=== PATIENT | female | born 1995 | race Caucasian/White ===

== ENCOUNTER 2021-02-01 12:52 | Emergency (ER) | payer OTHER, SELFPAY ==
[2021-02-01 12:54] VITALS: BP 140/84; PULSE 65; RESP 18; TEMP 37.2; O2SAT 98; BMI 22.6
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
[2021-02-01 14:26] VITALS: BP 112/89; PULSE 70; RESP 16; TEMP 37.2; O2SAT 97
== END 2021-02-01 14:30 | disposition home or self-care (01) ==
PROVIDERS: Emergency Provider Emergency Medicine
DX: S63.502A Unspecified sprain of left wrist, initial encounter (principal); V43.52XA Car driver injured in collision with other type car in traffic accident, initial encounter; Y92.488 Other paved roadways as the place of occurrence of the external cause
CPT/HCPCS: 73090; 99282

== ENCOUNTER → 2021-05-16 15:36 | Outpatient (CLI) | payer OTHER, SELFPAY ==
[2021-05-16 15:53] LABS: Influenza A, PCR Not Detected (NotDetected); Influenza B, PCR Not Detected (NotDetected)
[2021-05-16 16:15] LABS: Coronavirus 19, PCR Detected (NotDetected)
== END ==
PROVIDERS: Visit Provider Nurse Practitioner Family
DX: Z20.822 Contact with and (suspected) exposure to COVID-19 (principal); U07.1 COVID-19
CPT/HCPCS: C9803; U0003; U0005